=== PATIENT | female | born 1960 | race Caucasian/White ===

== ENCOUNTER 2019-01-03 20:23 | Inpatient (IN) ==
[2019-01-04] MEDS ORDERED: CARBOHYDRATES FOR HYPOGLYCEMIA PO PRN (02:58)
[2019-01-04] MEDS ORDERED: DEXTROSE 50% 50 ML SYRINGE IV PRN (02:58)
[2019-01-04] MEDS ORDERED: GLUCOSE 40% GEL 15 GM TUBE PO PRN (02:58)
[2019-01-04] MEDS ORDERED: GLUCOSE 10 TABS/TUBE PO PRN (02:58)
[2019-01-04] MEDS ORDERED: ONDANSETRON INJ 2 MG/ML 2 ML VIAL IV PRN (02:58)
[2019-01-04] MEDS ORDERED: GLUCAGON FOR INJ 1 MG VIAL SQ PRN (02:58)
--- NOTE | 2019-01-04 06:06 | History & Physical Report ---
Date of Service January 04, 2019 Assessment & Plan (1) Symptomatic anemia: Patient's hemoglobin reportedly initially been 14, and then was found to be 10 at a later interval, and then 8 upon laboratories performed today at [facility]. Repeat laboratories now. NPO Type and screen. Hemoccults. H&H every 6 hours Consult gastroenterology. Present on Admission?: Yes (2) Pulmonary embolism on right: Review of study report from outside facility notes a filling defect in the segmental/subsegmental posterior basilar right lower lobe pulmonary artery consistent with pulmonary embolism. Order lower extremity venous Dopplers bilaterally. Consult pulmonology. Present on Admission?: Yes (3) Hypertension: Hold HCTZ and enalapril. Present on Admission?: Yes (4) Hyperlipidemia: Continue fenofibrate 160 mg daily. Check a fasting lipid panel Present on Admission?: Yes (5) Diabetes mellitus: Hold metformin. Placed on Accu-Cheks before meals and at bedtime with NovoLog coverage per scale Check hemoglobin A1c Present on Admission?: Yes (6) Anxiety: Continue lorazepam. Present on Admission?: Yes (7) Hepatic steatosis: Follow serial LFTs. Present on Admission?: Yes History of Present Illness Chief Complaint: Patient was seen initially at [facility] emergency department earlier in the day due to headache, chest pain and dyspnea on exertion Primary Care Provider: Ashley Muhammad The patient is a 58-year-old female with a past medical history including hypertension, hyperlipidemia, diabetes mellitus and anxiety, who initially presented to the emergency department at [facility] with complaint of headache, chest pain, palpitations and progressively worsening dyspnea on exertion. She was found to have hemoglobin that decreased to 8, and with out having any GI physician production machine operator over the weekend at their facility, she was accepted in transfer to [facility] for further work-up and treatment. The patient reports that she has had rectal bleeding in the past, which was attributed to hemorrhoids, and did have a colonoscopy which was otherwise negative about 8-9 years ago. She has never had an endoscopy performed. She does also describe epigastric and mid abdominal burning sensation that has been persistent for a month or more. She had been seen at an acute care center and was treated for bronchitis with oral antibiotics recently, but without improvement in her symptoms, she presented to the ED as noted above. Allergies Allergy/AdvReac Type Severity Reaction Status Date / Time shrimp Allergy Rash Verified 01/04/19 05:51 Past Med/Surg History Social History Preferred Language: Beninese Communication Ability: Effective Beliefs That Will Affect Care: None Current Living Situation: Family Other Information That Helps Us Care for You: No Feels Safe at Home: Yes Safety Concerns: Feels Safe At This Time Smoking Status: Never smoker Hx Alcohol Use: No Hx Substance Use: No Review of Systems Review of Systems: The patient denies chest pain, cough, lower extremity swe lling, sore throat, fevers, chills, sweats, nausea, vomiting, diarrhea , constipation, pelvic pain, blood in urine or stool, dysuria, urinary frequency or urgency, memory loss, loss of consciousness, rash, abnormal bruising or bleeding, imbalance, focal or generalized weakness, numbness or tingling in arms or legs, generalized arthralgias or myalgias, back or neck pain, or night sweats. The review of systems is otherwise negative other than for that already noted above, and at least 10 systems have been reviewed. Physical Exam Physical Exam: The patient is awake, alert and oriented 3, well developed and well nourished, normocephalic and atraumatic, lying in bed and in no acute distress. HEENT--PERRL, EOMI, mucous membranes and oropharynx dry. Neck--supple. No JVD. No bruits. Thyroid normal, trachea midline, no adenopathy. Heart--normal S1 and S2. No murmurs, rubs or gallops. Lungs--clear bilaterally, no respiratory distress, no accessory muscle use. Abdomen--normal bowel sounds and soft. Nontender. Nondistended, no hernias or masses, no organomegaly. Extremities--no cyanosis or clubbing. No edema. There are good distal pulses b/l. Dermatologic--normal skin turgor, normal color, no abnormal lymph nodes, no rash. Neurologic--cranial nerves II through XII grossly intact. Rheumatologic--normal range of motion. Psychiatric--normal affect. Results & Data Vital Signs (Past 12 Hours) Vital Signs Temp Pulse Resp BP Pulse Ox 01/04/19 02:42 97.5 F L 79 19 164/74 H 96 01/04/19 02:10 98.1 F 84 18 182/84 H 95 Code Status & VTE Plan Code Status Full code VTE Prophylaxis Plan VTE Prophylaxis will be ordered: Yes PG Care Time/CCT Total # of Minutes Spent Total Time Spent with Patient: Total time spent is greater than 50% in coordination of care (as documented) at patient's floor/unit and/or counseling patient:
[2019-01-04 06:37] LABS: Hematocrit (blood only) 27.8 % (37-47); Mean Corpuscular Hemoglobin 19.1 pg (25-34); Mean Corpuscular Hgb Conc 28.8 g/dL (32-36); Mean Corpuscular Volume 66.3 fL (80-100); Mean Platelet Volume 8.9 fL (7.4-10.4); Platelet Count 574 K/uL (130-400); RDW Coefficient of Variation 15.8 % (11.5-14.5); RDW Standard Deviation 38.4 fL (36.4-46.3); Red Blood Count 4.19 M/uL (4.2-5.4); White Blood Count 8.23 K/uL (4.8-10.8)
[2019-01-04 06:41] LABS: Anisocytosis Present; Basophils # (auto) 0.12 K/uL (0-0.2); Basophils % (auto) 1.5 %; Eosinophils # (auto) 0.25 K/uL (0-0.5); Immature Granulocytes # (auto) 0.05 K/uL (0.00-0.02); Immature Granulocytes % (auto) 0.6 %; Lymphocytes # (auto) 1.51 K/uL (1.2-3.4); Lymphocytes % (auto) 18.3 %; Monocytes # (auto) 0.62 K/uL (0.11-0.59); Monocytes % (auto) 7.5 %; Neutrophils # (auto) 5.68 K/uL (1.4-6.5); Neutrophils % (auto) 69.1 %; Ovalocytes 1+; Polychromasia 1+
[2019-01-04 06:50] LABS: Alanine Aminotransferase 37 U/L (12-78); Albumin Level 3.3 gm/dl (3.4-5.0); Aspartate Aminotransferase 34 U/L (15-37); BUN Creatinine Ratio 18.9 (10-20); Blood Urea Nitrogen 18 mg/dl (7-18); Calcium 8.8 mg/dl (8.5-10.1); Carbon Dioxide 28 mmol/L (21-32); Chloride 102 mmol/L (98-107); Est GFR (African American) 77.4; Est GFR (Non-African American) 66.8; Glucose 156 mg/dl (70-99); Sodium 138 mmol/L (136-145)
[2019-01-04 06:55] LABS: Albumin Globulin Ratio 0.9 (0.9-2); Alkaline Phosphatase 66 U/L (45-117); Bilirubin,Total 0.5 mg/dl (0.2-1); Globulin 3.6 gm/dl (2.5-4.0); Total Protein 6.9 gm/dl (6.4-8.2); Troponin I < 0.015 ng/ml (0-0.045)
[2019-01-04] MEDS: INSULIN ASPART 100 UNITS/ML 3 ML PEN SC SCH ×2 (08:07→11:52)
--- NOTE | 2019-01-04 08:37 | Ultrasound Report ---
BILATERAL LOWER EXTREMITY VENOUS DOPPLER HISTORY: Acute pain and swelling of the lower extremities PE COMPARISON STUDY: None. FINDINGS: There is normal compressibility, flow, and augmentation within the bilateral lower extremit y deep venous systems. IMPRESSION: No DVT within the right or left lower extremity. Electronically signed by: Slick Sawant M.D. 01/04/2019 8:35 AM
--- NOTE | 2019-01-04 14:55 | Gastrointestinal Consultation ---
Date of Consultation January 04, 2019 Assessment & Plan (1) Symptomatic anemia: Fe studies pending but microcytic so could be Fe Defiency. Heme neg. rectal bleeding--chronic, rule out colon pathology epi pain--rule out PUD For above recommend EGD and colonoscopy which will plan for tomorrow. Discussed with DR Queen and he states ok even in light of pulm embolus given stability of patient and small size and may even be chronic. Procs and risks explained to patient and nieces which include but not limited to med reaction bleeding, perforation, aspiration, and missed lesions. Check PT/PTT in am. fatty liver--nothing acute to do. LFT this am normal. History of Present Illness Reason for Consultation: anemia Requesting Physician: DR Morales Attending Physician: Octavio Queen DO History of Present Illness CC shortness of breath HPI Two nieces present for H and P. Pt states had colo 8-9 years ago. States has frequent rectal bleeding bright red chronically couple times per week none for couple weeks. Some chronic epi pain post jonathan but new buring epi pain over last month. Shortness of breath on exertion. Alos some chest pain and palpiations and high BP on standing up. Recent abx for possible bronchitis as a patient no help. Per [facility] ER report her Hgb is normally in 13-14 range but on presentation there 01/03 at 1724 8 and this am also 8 with low MCV. AST elevated mildly at [facility] and this am normal. Rectal per ER report heme neg. Pt denies black stools. CXR at [facility] neg but D Dimer high so CTA done showing small PE right lung fatty liver. Doppler for LE DVT done here neg. PMH DM, anxiety FHX noncontributoaory Shx Tob neg Allergies Allergy/AdvReac Type Severity Reaction Status Date / Time shrimp Allergy Rash Verified 01/04/19 05:51 Patient History Social History Preferred Language: Vietnamese Communication Ability: Effective Beliefs That Will Affect Care: None Current Living Situation: Family Other Information That Helps Us Care for You: No Feels Safe at Home: Yes Safety Concerns: Feels Safe At This Time Smoking Status: Never smoker Hx Alcohol Use: No Hx Substance Use: No Review of Systems Review of Systems: All systems reviewed & are unremarkable except as noted in HPI & below Physical Exam Constitutional: WD/WN, vitals as above Eyes: PERRL, conjunctivae normal, anicteric sclerae ENMT: external ear and nose normal, oropharynx normal Neck: normal visual inspection and trachea midline Respiratory: normal respiratory effort, lungs clear to auscultation Cardiovascular: RRR, no murmur, no edema Gastrointestinal (Abdomen): normal bowel sounds, soft, nontender, no hepatosplenomegaly Skin: no rashes, warm and dry Neurologic: PERRL, EOMI, accommodation nl, no face palsy, no dysarthria Psychiatric: A+Ox3, euthymic affect Results & Data Vital Signs (Past 12 Hours) Vital Signs Temp Pulse Resp BP Pulse Ox 01/04/19 11:17 36.5 C 77 18 164/78 H 95 01/04/19 07:51 37.1 C 70 18 152/82 H 98
[2019-01-04] MEDS ORDERED: POLYETHYLENE (MIRALAX) 17 GM PACK PO SCH (15:00)
--- NOTE | 2019-01-04 15:02 | History & Physical Bridge Note ---
Date of Service January 04, 2019 History & Physical Bridge Note I have examined the patient, reviewed the History & Physical and in the interval since the performance of the History & Physical I have noted the following changes of clinical significance: Patient resting in bed, no distress, just wants some ice chips discussed recent events, says she has had progressive shortness of breath, no real chest pain she is constantly eating ice she has not noticed any dark stools she does have a history of hemorrhoids with an intervention and that bleeding had stopped some time ago last full colonoscopy was 10 years ago, never had EGD will repeat H/H this afternoon and get iron, TIBC, ferritin, folate and b12 l hanna discussed with Dr. Dent, plan for EGD and colonoscopy tomorrow/Saturday reviewed the CTA chest report, very small PE noted in right lower lobe, subsegmental branch no filling defects in large arteries negative for DVT bilaterally on venous dopplers here breathing comfortably on room air will hold off on full anticoagulation until anemia work up complete unsure if the PE is even acute as she is asymptomatic, likely the dyspnea is due to anemia, Hb of 8
[2019-01-04 15:25] LABS: Hematocrit (blood only) 27.9 % (37-47); Hemoglobin 8.2 g/dL (12.0-16.0)
[2019-01-04 16:03] LABS: Folate (Folic Acid) 17.18 ng/ml (>5.38)
[2019-01-04] MEDS ORDERED: hydroCHLOROthiazide 25 MG TAB PO STA (16:20)
[2019-01-04] MEDS ORDERED: ENALAPRIL MALEATE 5 MG TAB PO STA (16:20)
[2019-01-04] MEDS ORDERED: LORazepam 0.5 MG TAB PO PRN (16:21)
[2019-01-04] MEDS ORDERED: DiphenhydrAMINE HCL 50 MG/ML VIAL IV STA (16:51)
[2019-01-04] MEDS: POTASSIUM CHLORIDE 10 MEQ TABCR PO SCH (20:35)
[2019-01-05] MEDS: INSULIN ASPART 100 UNITS/ML 3 ML PEN SC SCH (00:22)
[2019-01-05 06:01] LABS: Estimated Average Glucose 197 mg/dl; Hemoglobin A1C 8.5 % (4.5-5.6)
[2019-01-05 06:11] LABS: Partial Thromboplastin Ratio 0.8; Partial Thromboplastin Time 21.9 Seconds (21.0-31.0); Prothrombin Time 10.7 Seconds (9.0-12.0)
[2019-01-05 06:16] LABS: Hematocrit (blood only) 26.8 % (37-47); Hemoglobin 7.7 g/dL (12.0-16.0); Mean Corpuscular Hgb Conc 28.7 g/dL (32-36); Mean Corpuscular Volume 66.2 fL (80-100); Mean Platelet Volume 8.7 fL (7.4-10.4); Platelet Count 465 K/uL (130-400); RDW Coefficient of Variation 15.7 % (11.5-14.5); RDW Standard Deviation 37.8 fL (36.4-46.3); Red Blood Count 4.05 M/uL (4.2-5.4); White Blood Count 5.24 K/uL (4.8-10.8)
[2019-01-05 06:17] LABS: Basophils # (auto) 0.08 K/uL (0-0.2); Basophils % (auto) 1.5 %; Eosinophils # (auto) 0.21 K/uL (0-0.5); Hypochromasia Present; Immature Granulocytes # (auto) 0.02 K/uL (0.00-0.02); Immature Granulocytes % (auto) 0.4 %; Lymphocytes # (auto) 1.01 K/uL (1.2-3.4); Lymphocytes % (auto) 19.3 %; Microcytosis Present; Monocytes # (auto) 0.56 K/uL (0.11-0.59); Monocytes % (auto) 10.7 %; Neutrophils # (auto) 3.36 K/uL (1.4-6.5); Neutrophils % (auto) 64.1 %; Ovalocytes 1+
[2019-01-05 06:30] LABS: Albumin Level 3.3 gm/dl (3.4-5.0); BUN Creatinine Ratio 14.1 (10-20); Bilirubin,Total 0.6 mg/dl (0.2-1); Calcium 8.8 mg/dl (8.5-10.1); Creatinine Clr Calc Pharmacy 92.6 ml/min; Est GFR (African American) 102.1; Est GFR (Non-African American) 88.1; Globulin 3.3 gm/dl (2.5-4.0); Potassium 3.4 mmol/L (3.5-5.1); Total Protein 6.6 gm/dl (6.4-8.2)
[2019-01-05] MEDS ORDERED: POTASSIUM CHLORIDE 20 MEQ TABCR PO STA (09:11)
--- NOTE | 2019-01-05 14:35 | History & Physical Report ---
Date of Service January 05, 2019 History of Present Illness Chief Complaint: anemia Primary Care Provider: Ashley Muhammad For EGD and colonoscopy Allergies Allergy/AdvReac Type Severity Reaction Status Date / Time shrimp Allergy Rash Verified 01/04/19 05:51 Past Med/Surg History Social History Preferred Language: Albanian Communication Ability: Effective Beliefs That Will Affect Care: None Current Living Situation: Family Other Information That Helps Us Care for You: No Feels Safe at Home: Yes Safety Concerns: Feels Safe At This Time Smoking Status: Never smoker Hx Alcohol Use: No Hx Substance Use: No Physical Exam Constitutional: + obese Respiratory: normal respiratory effort Cardiovascular: Rate/Rhythm: regular rate and regular rhythm Gastrointestinal (Abdomen): Percussion/Palpation: abdomen soft Results & Data Vital Signs (Past 12 Hours) Vital Signs Temp Pulse Resp BP Pulse Ox 01/05/19 11:03 36.7 C 80 18 151/81 H 98 01/05/19 06:41 36.9 C 77 18 146/78 H 95 01/05/19 03:21 36.8 C 80 18 128/74 95 Code Status & VTE Plan VTE Prophylaxis Plan VTE Prophylaxis will be ordered: Yes
--- NOTE | 2019-01-05 14:43 | Anesthesiology Consultation ---
Date of Service January 05, 2019 Diabetes type 2 HTN Obesity Pulmonary Embolism Anemia Assessment & Plan (1) Encounter for pre-operative examination: Chart Review Chart Review: Acceptable Risk for Surgery and Patient NOT seen in Pre Admission Testing Consults Requested none ASA ASA2 Proposed Anesthesia Anesthesia Type: MAC Risk / Benefits Reviewed With: PT / POA / Parent / Guardian, Accepts Plan and Informed Consent Obtained History Surgery Operation Date: 01/05/19 10:00 Proposed Procedures p Colonoscopy EGD Dr Annemarie Sharpe Height/Weight Height: 5 ft 6 in Weight: 92.4 kg Allergies Allergy/AdvReac Type Severity Reaction Status Date / Time shrimp Allergy Rash Verified 01/04/19 05:51 Medications Active Medications Generic Name Dose Route Start Last Admin Trade Name Freq PRN Reason Stop Dose Admin Potassium Chloride 10 meq 01/04/19 17:30 01/04/19 20:35 Klor-Con M10 PO 02/03/19 17:29 Not Given DAILY VICKY NPO Date Last Intake of Fluids: 01/04/19 Time Last Intake of Fluids: 23:00 Date Last Intake of Solids: 01/03/19 Time Last Intake of Solids: 12:25 Exercise / Class Metabolic Activity II 4-5 Yardwork/Stairs/Walk up hill Past Anesthesia History No Hx of Anesthesia Complications and No Family Hx of Anesthesia Complications History of PONV No Hx of PONV and No Hx of Motion Sickness Social History Smoking Status: Never smoker Hx Alcohol Use: No Hx Substance Use: No Physical Exam Vital Signs Last Vital Signs Temp 36.6 C 01/05/19 14:22 Pulse 83 01/05/19 14:22 Resp 20 01/05/19 14:22 BP 166/94 H 01/05/19 14:22 Pulse Ox 100 01/05/19 14:22 ENMT Mouth: no dentition abnormality Thyromental Distance: > or= 3.5 Finger Breadths Mallampati Class: II Neck normal visual inspection Respiratory normal respiratory effort Auscultation: lungs clear to auscultation bilaterally Cardiovascular Rate/Rhythm: regular rate and regular rhythm Psychiatric Orientation: alert Testing Laboratory Results 01/05/19 05:34 01/05/19 05:34 PT 10.7 Seconds (9.0-12.0) 01/05/19 05:34 INR 1.0 (0.9-1.1) 01/05/19 05:34 APTT 21.9 Seconds (21.0-31.0) 01/05/19 05:34 Hemoglobin A1c 8.5 % (4.5-5.6) H 01/04/19 05:43 Blood Type O Positive 01/04/19 07:06 Antibody Screen NEGATIVE 01/04/19 07:06 01/05/19 01/05/19 11:18 07:23 POC Glucose 149 H 181 H
[2019-01-05] MEDS ORDERED: SODIUM CHLORIDE 0.9% 1000ML 1,000 ML IV SCH (14:45)
[2019-01-05] MEDS ORDERED: LIDOCAINE HCL 2% 2 ML VIAL/AMP(20MG/ML) INFIL ONE (15:24)
[2019-01-05] MEDS ORDERED: PROPOFOL IV EMULSION 10 MG/ML 20 ML VIAL IV ONE ×2 (15:24)
--- NOTE | 2019-01-05 15:25 | GI REPORT ---
Patient Name: Meg Welsh Procedure Date: 01/05/2019 3:02 PM Date of : 1960 Admit Type: Inpatient Age: 58 Gender: Female Attending MD: Federico Sharpe MD Procedure: Upper GI endoscopy Providers: Federico Sharpe MD Referring MD: Emanuel Shepard Indications: Iron deficiency anemia Medicines: Propofol total dose 260 mg IV, Lidocaine 80 mg IV Complications: No immediate complications. Estimated Blood Loss: Estimated blood loss: none. Procedure: Pre-Anesthesia Assessment: - Prior to the procedure, a History and Physical was performed, and patient medications, allergies and sensitivities were reviewed. The patient's tolerance of previous anesthesia was reviewed. - The risks and benefits of the procedure and the sedation options and risks were discussed with the patient. All questions were answered and informed consent was obtained. After obtaining informed consent, the endoscope was passed under direct vision. Throughout the procedure, the patient's blood pressure, pulse, and oxygen saturations were monitored continuously. The Scope was introduced through the mouth, and advanced to the second part of duodenum. The upper GI endoscopy was accomplished without difficulty. The patient tolerated the procedure well. Findings: The Z-line was regular and was found 35 cm from the incisors. The examined esophagus was normal. A few 4 mm semi-sessile polyps with no bleeding and no stigmata of recent bleeding were found in the gastric body. The examined duodenum was normal. Impression: - Z-line regular, 35 cm from the incisors. - Normal esophagus. - A few gastric polyps. - Normal examined duodenum. - No specimens collected. Recommendation: - Return patient to [facility] for ongoing care. Federico Sharpe M.D. Federico Sharpe MD 01/05/2019 3:24:12 PM This report has been signed electronically. Note Initiated On: 01/05/2019 3:02 PM Number of Addenda: 0 I attest to the content of the Intraoperative Record and orders documented therein, exceptions below {[id number]}
--- NOTE | 2019-01-05 15:27 | GI REPORT ---
Patient Name: Meg Welsh Procedure Date: 01/05/2019 3:01 PM Date of : 1960 Admit Type: Inpatient Age: 58 Gender: Female Attending MD: Federico Sharpe MD Procedure: Colonoscopy Providers: Federico Sharpe MD Referring MD: Emanuel Wilhelm Indications: Rectal bleeding, Iron deficiency anemia Medicines: Propofol total dose 260 mg IV, Lidocaine 80 mg IV Complications: No immediate complications. Estimated Blood Loss: Estimated blood loss: none. Procedure: Pre-Anesthesia Assessment: - Prior to the procedure, a History and Physical was performed, and patient medications, allergies and sensitivities were reviewed. The patient's tolerance of previous anesthesia was reviewed. - The risks and benefits of the procedure and the sedation options and risks were discussed with the patient. All questions were answered and informed consent was obtained. After I obtained informed consent, the scope was passed under direct vision. Throughout the procedure, the patient's blood pressure, pulse, and oxygen saturations were monitored continuously. The scope was introduced through the anus and advanced to the terminal ileum. The colonoscopy was performed without difficulty. The patient tolerated the procedure well. The quality of the bowel preparation was good. Findings: The terminal ileum appeared normal. Non-bleeding internal hemorrhoids were found during endoscopy. The hemorrhoids were mild. Impression: - The examined portion of the ileum was normal. - Non-bleeding internal hemorrhoids. - No specimens collected. Recommendation: - Return patient to [facility] for ongoing care. Federico Sharpe M.D. Federico Sharpe MD 01/05/2019 3:26:17 PM This report has been signed electronically. Note Initiated On: 01/05/2019 3:01 PM Number of Addenda: 0 I attest to the content of the Intraoperative Record and orders documented therein, exceptions below {[id number]}
--- NOTE | 2019-01-05 15:45 | Progress Note ---
DATE: 01/05/2019 REASON FOR EVALUATION: Anemia and rectal bleeding. HISTORY OF PRESENT ILLNESS: The patient is a 58-year-old transferred from [facility] who underwent an EGD and colonoscopy today for anemia with microcytic indices and rectal bleeding. EGD was negative except for some incidental gastric polyps. The exam was carried into the duodenum where numerous villi were encountered indicating negative for celiac disease. Her colonoscopy was carried into the terminal ileum. There was no inflammation, polyps, cancers or bleeding lesions seen. The only lesions found were some mild internal hemorrhoids which were the obvious source for her rectal bleeding. At this point, I would recommend that the patient undergo a Hematology consult and we will arrange for her to have an outpatient video capsule to evaluate her small intestine.
--- NOTE | 2019-01-05 15:55 | Anesthesiology Progress Note ---
Date of Service January 05, 2019 Anesthesia Post Procedure Vital Signs Vital Signs: Temp Pulse Pulse Resp BP Pulse Ox 01/05/19 15:41 75 18 131/79 96 01/05/19 15:26 87 18 113/55 L 94 01/05/19 14:22 36.6 C 83 20 166/94 H 100 01/05/19 11:03 36.7 C 80 18 151/81 H 98 01/05/19 06:41 36.9 C 77 18 146/78 H 95 01/05/19 03:21 36.8 C 80 18 128/74 95 01/04/19 23:06 36.8 C 80 18 156/77 H 99 01/04/19 19:40 36.7 C 85 16 136/78 97 01/04/19 16:00 81 Transfer of Care Handoff Completed per policy Notes Mental Status: alert / awake / arousable Patient Amnestic to Procedure: Yes Nausea / Vomiting: adequately controlled Pain: adequately controlled Airway Patency, RR, SpO2: stable & adequate BP & HR: stable & adequate Hydration State: stable & adequate Anesthetic Complications: no major complications apparent
[2019-01-05] MEDS: POTASSIUM CHLORIDE 10 MEQ TABCR PO SCH (17:40)
--- NOTE | 2019-01-05 19:27 | Hospitalist Progress Note ---
Date of Service January 05, 2019 Assessment & Plan (1) Iron deficiency anemia: severe. s/p EGD/colonoscopy today. no source (mild hemorrhoids found but doubt this was cause). agree with outpatient capsule endoscopy. start iron supplementation. may need IV venofer. b12 level is low-normal -- supplement. cbc in am for stability. (2) Symptomatic anemia: 2nd to severe Fe deficiency. as above. would Tx if Hb <7.5. (3) Pulmonary embolism on right: Review of study report from outside facility notes a filling defect in the segmental/subsegmental posterior basilar right lower lobe pulmonary artery consi stent with pulmonary embolism. Dopplers neg for DVT. this would be unprovoked event. since endoscopes are negative and no obvious GI blood loss at this time consider starting anticoagulation tomorrow - eliquis? unprovoked nature of the PEs is concerning for occult malignancy. doubt inherited thrombophilia. (4) Hypertension: Cont enalapril. Adjust as needed. (5) Hyperlipidemia: resume fibrate therapy at d/c. (6) Diabetes mellitus: Holding metformin. a1c 8.5%. would titrate metformin at d/c. consider adding januvia as well. (7) Anxiety: Continue lorazepam. mod-severe symptoms right now. (8) Hepatic steatosis: LFTs stable. Subjective patient very anxious. asks about her recent dyspnea on exertion. multiple questions about the anemia. thinks rectal bleeding was due to hemorrhoids. hasn't had BRBPR in some time, however. mentions she went to [facility] because "my blood pressure went up high when I stood up." no recent travel. no recent surgery. mother had VTE in context of breast cancer years ago. Review of Systems Constitutional: no fever and no weight loss Respiratory: + dyspnea on exertion; no cough and no dyspnea Cardiovascular: no chest pain Gastrointestinal: no abdominal pain, no nausea and no vomiting Physical Exam Constitutional: well developed and well nourished; no acute distress ENMT: external ear and nose normal, oropharynx normal Respiratory: normal respiratory effort, lungs clear to auscultation Cardiovascular: RRR, no murmur, no edema Heart Sounds: normal S1 and normal S2 Vessels: posterior tibial pulses present and dorsalis pedis pulses present; no JVD Extremities: + edema Gastrointestinal (Abdomen): normal bowel sounds, soft, nontender, no hepatosplenomegaly Skin: + pallor Psychiatric: Orientation: alert and oriented x 3 Affect: + anxious affect Results & Data Vital Signs (Past 12 Hours) Vital Signs Temp Pulse Resp BP Pulse Ox 01/05/19 18:48 36.7 C 87 20 148/78 H 97 01/05/19 15:56 70 18 137/92 98 01/05/19 15:41 75 18 131/79 96 01/05/19 15:26 87 18 113/55 L 94 01/05/19 14:22 36.6 C 83 20 166/94 H 100 01/05/19 11:03 36.7 C 80 18 151/81 H 98 Laboratory Results Laboratory Results - last 24 hr 01/04/19 01/05/19 01/05/19 05:43 05:34 05:34 WBC 5.24 RBC 4.05 L Hgb 7.7 L Hct 26.8 L MCV 66.2 L MCH 19.0 L MCHC 28.7 L RDW Std Deviation 37.8 RDW Coeff of Belen 15.7 H Plt Count 465 H MPV 8.7 Immature Gran % (Auto) 0.4 Neut % (Auto) 64.1 Lymph % (Auto) 19.3 [place] % (Auto) 10.7 Eos % (Auto) 4.0 Baso % (Auto) 1.5 Immature Gran # (Auto) 0.02 Neut # (Auto) 3.36 Lymph # (Auto) 1.01 L King[place] # (Auto) 0.56 Eos # (Auto) 0.21 Baso # (Auto) 0.08 Hypochromasia Present Microcytosis Present Ovalocytes 1+ PT 10.7 INR 1.0 APTT 21.9 PTT Ratio 0.8 Sodium Potassium Chloride Carbon Dioxide Anion Gap BUN Creatinine Est Cr Clr Drug Dosing Est GFR ( Amer) Est GFR (Non-Af Amer) BUN/Creatinine Ratio Glucose POC Glucose Estimat Average Glucose 197 Hemoglobin A1c 8.5 H Calcium Iron Total Bilirubin AST ALT Alkaline Phosphatase Total Protein Albumin Globulin Albumin/Globulin Ratio 01/05/19 01/05/19 01/05/19 05:34 07:23 11:18 WBC RBC Hgb Hct MCV MCH MCHC RDW Std Deviation RDW Coeff of Belen Plt Count MPV Immature Gran % (Auto) Neut % (Auto) Lymph % (Auto) King[place] % (Auto) Eos % (Auto) Baso % (Auto) Immature Gran # (Auto) Neut # (Auto) Lymph # (Auto) King[place] # (Auto) Eos # (Auto) Baso # (Auto) Hypochromasia Microcytosis Ovalocytes PT INR APTT PTT Ratio Sodium 139 Potassium 3.4 L Chloride 103 Carbon Dioxide 28 Anion Gap 8.0 BUN 10 D Creatinine 0.74 Est Cr Clr Drug Dosing 92.6 Est GFR ( Amer) 102.1 Est GFR (Non-Af Amer) 88.1 BUN/Creatinine Ratio 14.1 Glucose 148 H POC Glucose 181 H 149 H Estimat Average Glucose Hemoglobin A1c Calcium 8.8 Iron Total Bilirubin 0.6 AST 33 ALT 34 Alkaline Phosphatase 73 Total Protein 6.6 Albumin 3.3 L Globulin 3.3 Albumin/Globulin Ratio 1.0 01/05/19 01/05/19 01/05/19 16:13 16:38 20:26 WBC RBC Hgb Hct MCV MCH MCHC RDW Std Deviation RDW Coeff of Belen Plt Count MPV Immature Gran % (Auto) Neut % (Auto) Lymph % (Auto) King[place] % (Auto) Eos % (Auto) Baso % (Auto) Immature Gran # (Auto) Neut # (Auto) Lymph # (Auto) King[place] # (Auto) Eos # (Auto) Baso # (Auto) Hypochromasia Microcytosis Ovalocytes PT INR APTT PTT Ratio Sodium Potassium Chloride Carbon Dioxide Anion Gap BUN Creatinine Est Cr Clr Drug Dosing Est GFR ( Amer) Est GFR (Non-Af Amer) BUN/Creatinine Ratio Glucose POC Glucose 117 H 151 H Estimat Average Glucose Hemoglobin A1c Calcium Iron 14 L Total Bilirubin AST ALT Alkaline Phosphatase Total Protein Albumin Globulin Albumin/Globulin Ratio PG Care Time/CCT Total # of Minutes Spent Total Time Spent with Patient: Total time spent is greater than 50% in coordination of care (as documented) at patient's floor/unit and/or counseling patient: (1) Hypertension Hypertension type: essential hypertension Qualified Code(s): I10 - Essential (primary) hypertension (2) Hyperlipidemia Hyperlipidemia type: mixed hyperlipidemia Qualified Code(s): E78.2 - Mixed hyperlipidemia (3) Diabetes mellitus Diabetes mellitus type: type 2 Diabetes mellitus ferry terminal supervisor insulin use: without ferry terminal supervisor use Diabetes mellitus complication status: without complication Qualified Code(s): E11.9 - Type 2 diabetes mellitus without complications (4) Iron deficiency anemia Iron deficiency anemia type: unspecified iron deficiency Qualified Code(s): D50.9 - Iron deficiency anemia, unspecified
[2019-01-05] MEDS: ENALAPRIL MALEATE 5 MG TAB PO SCH (21:24)
[2019-01-06 06:24] LABS: Hematocrit (blood only) 29.6 % (37-47); Hemoglobin 8.4 g/dL (12.0-16.0); Mean Corpuscular Hemoglobin 18.8 pg (25-34); Mean Corpuscular Hgb Conc 28.4 g/dL (32-36); Mean Corpuscular Volume 66.2 fL (80-100); Mean Platelet Volume 8.8 fL (7.4-10.4); Platelet Count 563 K/uL (130-400); RDW Coefficient of Variation 15.8 % (11.5-14.5); RDW Standard Deviation 38.1 fL (36.4-46.3); Red Blood Count 4.47 M/uL (4.2-5.4); White Blood Count 6.09 K/uL (4.8-10.8)
[2019-01-06 06:46] LABS: Anisocytosis Present; Basophils # (auto) 0.11 K/uL (0-0.2); Basophils % (auto) 1.8 %; Eosinophils # (auto) 0.22 K/uL (0-0.5); Eosinophils % (auto) 3.6 %; Hypochromasia Present; Immature Granulocytes # (auto) 0.02 K/uL (0.00-0.02); Immature Granulocytes % (auto) 0.3 %; Lymphocytes # (auto) 1.21 K/uL (1.2-3.4); Lymphocytes % (auto) 19.9 %; Microcytosis Present; Monocytes # (auto) 0.49 K/uL (0.11-0.59); Neutrophils # (auto) 4.04 K/uL (1.4-6.5); Neutrophils % (auto) 66.4 %; Ovalocytes 1+; Polychromasia 1+
[2019-01-06 06:56] LABS: Albumin Level 3.6 gm/dl (3.4-5.0); BUN Creatinine Ratio 16.4 (10-20); Calcium 8.8 mg/dl (8.5-10.1); Creatinine Clr Calc Pharmacy 76.6 ml/min; Est GFR (African American) 81.6; Est GFR (Non-African American) 70.4; Magnesium 2.6 mg/dl (1.8-2.4); Potassium 3.3 mmol/L (3.5-5.1)
[2019-01-06 06:59] LABS: Albumin Globulin Ratio 0.9 (0.9-2); Bilirubin,Total 0.8 mg/dl (0.2-1); Globulin 3.8 gm/dl (2.5-4.0); Total Protein 7.4 gm/dl (6.4-8.2)
[2019-01-06] MEDS: FERROUS SULFATE 325 MG TAB PO SCH ×2 (08:24→13:07)
--- NOTE | 2019-01-06 08:27 | Anesthesiology Progress Note ---
Date of Service January 06, 2019 Anesthesia Post Procedure Vital Signs Vital Signs: Temp Pulse Pulse Resp BP Pulse Ox 01/06/19 07:15 81 01/06/19 07:00 36.7 C 79 16 126/72 96 01/06/19 03:24 36.7 C 83 18 127/75 96 01/05/19 23:55 36.7 C 83 18 144/76 H 98 01/05/19 18:48 36.7 C 87 20 148/78 H 97 01/05/19 16:30 36.7 C 85 74 16 163/80 H 99 01/05/19 15:56 70 18 137/92 98 01/05/19 15:41 75 18 131/79 96 01/05/19 15:26 87 18 113/55 L 94 01/05/19 14:22 36.6 C 83 20 166/94 H 100 01/05/19 11:03 36.7 C 80 18 151/81 H 98 Notes Mental Status: alert / awake / arousable and participated in evaluation Patient Amnestic to Procedure: Yes Nausea / Vomiting: adequately controlled Pain: adequately controlled Airway Patency, RR, SpO2: stable & adequate BP & HR: stable & adequate Hydration State: stable & adequate Anesthetic Complications: no major complications apparent and Pt Satisfied with anesthetic care
[2019-01-06] MEDS ORDERED: IRON SUCROSE 300 MG in SODIUM CHLORIDE 0.9% 250 ML IV SCH (09:00)
[2019-01-06] MEDS: CYANOCOBALAMIN 500 MCG TABLET (VITAMIN B-12) PO SCH (09:02)
[2019-01-06] MEDS ORDERED: POTASSIUM CHLORIDE 20 MEQ TABCR PO ONE (10:00)
[2019-01-06] MEDS: POTASSIUM CHLORIDE 10 MEQ TABCR PO SCH (10:14)
--- NOTE | 2019-01-06 11:57 | Consultation Report ---
DATE OF CONSULTATION: 01/06/2019 REASON FOR CONSULTATION: Management of iron deficiency anemia and possible gastrointestinal bleeding. HISTORY OF PRESENT ILLNESS: Meg is a very pleasant 58-year-old female patient who initially presented to [facility], was subsequently transferred to [facility] with dyspnea on exertion and profound anemia. Apparently, the patient had an issue with her blood pressure rising precipitously and was becoming progressively short of breath, prompting her presentation to the hospital. Upon admission, she was found to suffer from a profound microcytic hypochromic anemia. Iron studies done at [facility] have confirmed iron deficiency. The patient lives in [place] and clearly admits to not keeping up with her medical care. Upon presentation to [facility], was diagnosed with a right-sided pulmonary embolism. Follow up Dopplers are negative for DVT. Appropriately, Gastroenterology has been consulted. Colonoscopy done yesterday revealed nonbleeding internal hemorrhoids and no active bleeding otherwise. EGD was pretty much the same with no evidence of occult bleeding or pathology. Examination of her peripheral blood counts clearly demonstrates overt iron deficiency as manifested by decreased serum iron and elevated platelet count, which is commonly seen. The patient otherwise feels well, offers no complaints of pain, fever or chills. PAST MEDICAL HISTORY: Includes type 2 diabetes mellitus, hyperlipidemia, hypertension, anxiety/depression, hepatic steatosis, now iron deficiency. MEDICATIONS: Metformin. ALLERGIES: INCLUDE SHRIMP. SOCIAL HISTORY: The patient lives with her sister. She is . She is a nonsmoker, nondrinker, non-illicit drug user. FAMILY HISTORY: Mother actually of metastatic breast cancer in her 60s. REVIEW OF SYSTEMS: As per HPI, most notably for dyspnea on exertion, shortness of breath. GENERAL: Negative for fevers, chills or sweats. She is not anorexic or losing weight. SKIN: No rashes or lesions. No history of dermatoses. HEENT: She denies headaches. Positive for occasional lightheadedness. No overt vertigo, no visual or hearing deficits. No sinus symptoms, sore throat or dysphagia. LYMPH: No history of lymphoproliferative disease. CARDIAC: No history of coronary artery disease, no angina or palpitations. PULMONARY: Negative for COPD. She described shortness of breath, dyspnea on exertion. Denies hemoptysis. No cough reported otherwise. GASTROINTESTINAL: Negative for abdominal pain, nausea, vomiting, diarrhea or constipation. Positive for occasional bright red rectal bleeding. GENITOURINARY: No hematuria, dysuria, urinary incontinence. PSYCHIATRIC: Positive for anxiety by history. ENDOCRINE: Positive for type 2 diabetes mellitus by history. No history of thyroid disease. MUSCULOSKELETAL: No overt muscle weakness. No arthralgias or myalgias otherwise. NEUROLOGIC: Negative for seizure, stroke, or migraine headache. HEMATOLOGIC: Positive for microcytic anemia. PHYSICAL EXAMINATION: GENERAL: A very pleasant, well-nourished 58-year-old female, in no acute distress. VITAL SIGNS: Temperature 36.7, pulse 81, respiratory rate 16, blood pressure 126/72. SKIN: Warm, dry, noncyanotic without petechia, rash or ecchymosis. HEENT: Head is atraumatic, normocephalic. Eyes: PERRLA, EOMI. Sclerae nonicteric. No conjunctival injection. Nares patent without rhinorrhea or discharge. Throat is clear. Tongue is midline. No buccal lesions or ulcerations. NECK: Supple. No evidence of thyromegaly. Trachea is midline. LYMPHATICS: No cervical or supraclavicular palpable nodes. HEART: Regular rate and rhythm. No clicks, rubs or murmurs or gallops. LUNGS: Clear to auscultation bilaterally. ABDOMEN: Soft, nontender, nondistended, without palpable hepatosplenomegaly. EXTREMITIES: No clubbing, cyanosis or edema. MUSCULOSKELETAL: Strength and pulses are equal in all 4 quadrants. NEUROLOGICALLY: She is awake, alert and oriented x3. Cranial nerves are grossly intact. LABORATORY DATA: WBC count 6090, hemoglobin 8.4, platelet count 563,000. Sodium 138, potassium 3.3, chloride 102, carbon dioxide 24, BUN 15, creatinine 0.89. Serum iron 14, glucose 190. RADIOGRAPHIC DATA: Doppler examination, negative DVT study. IMPRESSION: 1. Unprovoked pulmonary embolism. 2. Microcytic anemia. 3. Chronic gastrointestinal bleeding. 4. Type 2 diabetes mellitus. 5. Iron deficiency. 6. Reactive thrombocytosis. 7. Mild hypokalemia. PLAN: It is my pleasure to visit with Meg at bedside. Clearly, this is a very pleasant 58-year-old lady who has not kept up with her age appropriate cancer screening. The patient has never had a mammogram performed. This was her initial colonoscopy and EGD which were fortunately negative. Agree with the hospitalist she will need camera endoscopy to rule out a small bowel occult neoplasia and/or hemorrhage. In regards to her microcytic anemia, I would proceed with IV supplementation. With ongoing bleeding, I suspect oral therapy would not be sufficient to keep up with ongoing losses. In regards to her pulmonary embolism, even though there is risk of bleeding, would initiate unfractionated heparin without bolus and then transition her to Coumadin until the bleeding issues are sorted out. Because of her risk of bleeding, would monitor H and H's every 6 hours or so and if necessary transfuse. I advised Meg that she should follow up with hematology as outpatient; however, transportation is somewhat of an issue. If she cannot be transported, would include in her discharge summary instructions on proceeding with further IV supplementation, iron sucrose 300 mg weekly x2 more doses, should replete her iron stores; however, with ongoing bleeding, she will require supplementation in the future. I would be more than happy to see her as an outpatient if she is able to arrange for transportation. Thank you very much for allowing me to participate in her care. If you have any questions or concerns, feel free to contact me at any time. JAYNE
--- NOTE | 2019-01-06 12:26 | Medical Student H&P ---
Date of Service January 06, 2019 History of Present Illness Chief Complaint: Low iron Primary Care Provider: Ashley Salas Jb Weaver is a 58-year-old female with a history of DMII, hypertension, hyperlipidemia and anxiety who presented to the emergency department at [facility] on Saturday night with concerns of chest pain, dyspnea on exertion, and headache. Her troponin was <0.02 ng/mL; however, she was found to have a hemoglobin of 8 g/dL and a D-dimer of 1.7 mg/L. A chest CT was performed and she was found to have a pulmonary embolism in her right lower lobe. She was at this time transported to [facility] where she underwent venous doppler US to rule out the possibility of a DVT. Bloodwork was repeated showing a hemoglobin of 7.0 ng/dL and MCV of 66.3 fL, indicative of a microcytic anemia. It was noted that at some time the patients hemoglobin had dropped from 14 to 10 but it is unknown when this happened. Patient reports that she has bloodwork done every 6 months. Patient reports that she has had rectal prolapse since the of her son, 39 years ago. She began having symptomatic hemorrhoids 8-9 years ago. At which time she obtained a colonoscopy that showed no evidence of polyps or malignancy. The bleeding has continued intermittently since that time. She reports that she has bright red bleeding every few months and that this bleeding has not changed recently. She states that she only has bleeding with formed stools and the blood is not on the feces itself but rather in the water and on the toilet paper after she relieves herself. She does not endorse any pain or itching with these bloody bowel movements. She will sometimes treat the hemorrhoids with preparation H which helps some. She was also prescribed a cream for the hemorrhoids which she only uses when there is a lot of bleeding which stops it. She normally defecates 2-3 times in the morning and once in the evening. She says her stools are usually loose from her metformin. She does not endorse any changes in her bowel habits or the hemorrhoids over time. Her diet consists mainly of fish, chicken, rice, and potatoes and she eats these foods for breakfast, lunch, and dinner. She does not take a fiber supplement. She was previously diagnosed as anemic in 2005. At that time, she had intense menstrual bleeding. She does not believe there was a particular diagnosis made but knows that she has something that wasnt cancer on her ovary. She underwent a total hysterectomy at this time to relieve the bleeding. Prior to that time her flow was moderate, her cycle lasted 30 days and her menses lasted 7 days. An EGD and colonoscopy were performed yesterday which revealed mild hemorrhoids but no polyps. A pill cam will be performed to further assess the small bowel. She was seen by Dr. Childress in heme/onc this morning who would like to begin her on 3 rounds of IV iron to correct the anemia. He is concerned about the PE and would like to slowly start her on heparin. Her diabetes is managed at home with 500 mg metformin BID. This has been discontinued in the hospital and insulin gave her a rash. She states today that she is feeling better after eating after her procedure yesterday and does endorse any pain, fatigue, headache, palpitations but states that she is anxious and upset about her hospitalization. Allergies Allergy/AdvReac Type Severity Reaction Status Date / Time shrimp Allergy Rash Verified 01/04/19 05:51 Past Med/Surg History Social History Preferred Language: Italian Communication Ability: Effective Beliefs That Will Affect Care: None Current Living Situation: Family Other Information That Helps Us Care for You: No Feels Safe at Home: Yes Safety Concerns: Feels Safe At This Time Smoking Status: Never smoker Hx Alcohol Use: No Hx Substance Use: No Review of Systems no fever, no chills, no sweats and no weight loss no cough and no dyspnea no dyspnea, no orthopnea and no palpitations as per Subjective / HPI + anxiety Physical Exam Physical Exam: Appearance: Patient was in no acute distress but appeared pale and tearful throughout interview. Vital Signs: BP: 126/72 HR: 81 RR: 16 Temp: 36.7 C Pulse Ox: 96 Height: 5 6 Weight: 201 lb. Physical Exam: Neck: Swelling in the superficial cervical region. Pulmonary Clear bilaterally. No crackles, rales, or wheezes. Cardiac with pulses Regular rate and rhythm. No rubs murmurs or gallops. No edema. Abdomen Not examined. Rectal, Pelvic and Genitals Not examined. Lymph No lymphadenopathy. Neuro Alert and oriented x 3. Thought pattern is clear and organized. Results & Data Vital Signs (Past 12 Hours) Vital Signs Temp Pulse Pulse Resp BP Pulse Ox 01/06/19 10:50 36.7 C 82 16 143/81 H 97 01/06/19 07:15 81 01/06/19 07:00 36.7 C 79 16 126/72 96 01/06/19 03:24 36.7 C 83 18 127/75 96 Laboratory Results K = 3.3 Anion Gap = 12 Creatinine = .89 Glucose = 190 -> 182 Magnesium 2.6 H-H = 8.4 and 29.6 PLT = 563 MCV = 66.2 Code Status & VTE Plan VTE Prophylaxis Plan VTE Prophylaxis will be ordered: Yes
[2019-01-06] MEDS ORDERED: Heparin IV Standard *NO* Bolus IV ONE (13:47)
[2019-01-06 16:46] LABS: Prothrombin Time 10.4 Seconds (9.0-12.0)
[2019-01-06 16:47] LABS: Partial Thromboplastin Ratio 0.9; Partial Thromboplastin Time 24.3 Seconds (21.0-31.0)
[2019-01-06] MEDS: HEPARIN SODIUM/DEXTROSE 25,000 UNITS/500 ML BAG IV SCH (17:28)
[2019-01-06] MEDS: WARFARIN SOD 5 MG TAB PO SCH (17:57)
[2019-01-06] MEDS: ENALAPRIL MALEATE 5 MG TAB PO SCH (20:23)
--- NOTE | 2019-01-06 21:43 | Hospitalist Progress Note ---
Date of Service January 06, 2019 Assessment & Plan (1) Iron deficiency anemia: severe. s/p EGD/colonoscopy without source (mild hemorrhoids found but doubt this was cause). outpatient capsule endoscopy recommended. b12 level is low-normal -- also supplement. H/H stable today. appreciate heme/onc consult -- s/p venofer today, and will need at least 2 more doses as outpatient. repeat CBC am. (2) Symptomatic anemia: 2nd to severe Fe deficiency. as above. would Tx if Hb <7.5. H/H stable today, however. (3) Pulmonary embolism on right: Review of CT report from outside facility noted a filling defect in the segmental/subsegmental posterior basilar right lower lobe pulmonary artery consistent with pulmonary embolism. Dopplers neg for DVT. this would be unprovoked event. no recent travel, surgery, etc. unprovoked nature of the PEs is concerning for occult malignancy. doubt inherited thrombophilia. in light of concern for GI bleeding will place on heparin drip with coumadin and observe for at least 24 hours to ensure no GI bleeding on such. Dr Childress recommending this approach. will need at least 6 months of Rx. (4) Hypertension: Cont enalapril. Controlled. (5) Hyperlipidemia: resume fibrate therapy at d/c. (6) Diabetes mellitus: Holding metformin. a1c 8.5%. would titrate metformin at d/c. consider adding januvia as well. ?reaction to novolog last pm? this would be unusual -- apparently had transient rash on face/neck only? observe. (7) Anxiety: Continue lorazepam prn. Consider SSRI. (8) Hepatic steatosis: LFTs stable. (9) Hypokalemia: replace, repeat BMP am (10) DVT prophylaxis: heparin drip w/ coumadin Subjective patient quite emotional during the visit again. 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 she is anxious to go home. denies any BRBPR or melena. denies abd pain. eating fine. no dyspnea. Review of Systems Constitutional: no fever and no chills Respiratory: no cough and no dyspnea Cardiovascular: no chest pain Gastrointestinal: no abdominal pain, no nausea and no vomiting Physical Exam Constitutional: well developed and well nourished; no acute distress ENMT: external ear and nose normal, oropharynx normal Respiratory: normal respiratory effort, lungs clear to auscultation Cardiovascular: RRR, no murmur, no edema Heart Sounds: normal S1 and normal S2 Vessels: posterior tibial pulses present and dorsalis pedis pulses present; no JVD Gastrointestinal (Abdomen): normal bowel sounds, soft, nontender, no hepatosplenomegaly Skin: + pallor Psychiatric: Orientation: alert and oriented x 3 Affect: + anxious affect Results & Data Vital Signs (Past 12 Hours) Vital Signs Temp Pulse Pulse Resp BP BP Pulse Ox 01/06/19 20:33 36.8 C 86 19 126/74 95 01/06/19 19:12 85 01/06/19 15:11 36.9 C 82 18 132/76 97 01/06/19 10:50 36.7 C 82 16 143/81 H 97 Laboratory Results Laboratory Results - last 24 hr 01/06/19 01/06/19 01/06/19 05:42 05:42 07:18 WBC 6.09 RBC 4.47 Hgb 8.4 L Hct 29.6 L MCV 66.2 L MCH 18.8 L MCHC 28.4 L RDW Std Deviation 38.1 RDW Coeff of [place] 15.8 H Plt Count 563 H MPV 8.8 Immature Gran % (Auto) 0.3 Neut % (Auto) 66.4 Lymph % (Auto) 19.9 [place] % (Auto) 8.0 Eos % (Auto) 3.6 Baso % (Auto) 1.8 Immature Gran # (Auto) 0.02 Neut # (Auto) 4.04 Lymph # (Auto) 1.21 [place] # (Auto) 0.49 Eos # (Auto) 0.22 Baso # (Auto) 0.11 Polychromasia 1+ Hypochromasia Present Anisocytosis Present Microcytosis Present Ovalocytes 1+ PT INR APTT PTT Ratio Sodium 138 Potassium 3.3 L Chloride 102 Carbon Dioxide 24 Anion Gap 12.0 H BUN 15 Creatinine 0.89 Est Cr Clr Drug Dosing 76.6 Est GFR ( Amer) 81.6 Est GFR (Non-Af Amer) 70.4 BUN/Creatinine Ratio 16.4 Glucose 190 H POC Glucose 182 H Calcium 8.8 Magnesium 2.6 H Total Bilirubin 0.8 AST 41 H ALT 40 Alkaline Phosphatase 82 Total Protein 7.4 Albumin 3.6 Globulin 3.8 Albumin/Globulin Ratio 0.9 01/06/19 01/06/19 01/06/19 11:36 16:22 16:22 WBC RBC Hgb Hct MCV MCH MCHC RDW Std Deviation RDW Coeff of [place] Plt Count MPV Immature Gran % (Auto) Neut % (Auto) Lymph % (Auto) [place] % (Auto) Eos % (Auto) Baso % (Auto) Immature Gran # (Auto) Neut # (Auto) Lymph # (Auto) [place] # (Auto) Eos # (Auto) Baso # (Auto) Polychromasia Hypochromasia Anisocytosis Microcytosis Ovalocytes PT 10.4 INR 1.0 APTT 24.3 PTT Ratio 0.9 Sodium Potassium Chloride Carbon Dioxide Anion Gap BUN Creatinine Est Cr Clr Drug Dosing Est GFR ( Amer) Est GFR (Non-Af Amer) BUN/Creatinine Ratio Glucose POC Glucose 153 H Calcium Magnesium Total Bilirubin AST ALT Alkaline Phosphatase Total Protein Albumin Globulin Albumin/Globulin Ratio 01/06/19 01/06/19 16:31 20:17 WBC RBC Hgb Hct MCV MCH MCHC RDW Std Deviation RDW Coeff of [place] Plt Count MPV Immature Gran % (Auto) Neut % (Auto) Lymph % (Auto) [place] % (Auto) Eos % (Auto) Baso % (Auto) Immature Gran # (Auto) Neut # (Auto) Lymph # (Auto) [place] # (Auto) Eos # (Auto) Baso # (Auto) Polychromasia Hypochromasia Anisocytosis Microcytosis Ovalocytes PT INR APTT PTT Ratio Sodium Potassium Chloride Carbon Dioxide Anion Gap BUN Creatinine Est Cr Clr Drug Dosing Est GFR ( Amer) Est GFR (Non-Af Amer) BUN/Creatinine Ratio Glucose POC Glucose 136 H 185 H Calcium Magnesium Total Bilirubin AST ALT Alkaline Phosphatase Total Protein Albumin Globulin Albumin/Globulin Ratio PG Care Time/CCT Total # of Minutes Spent Total Time Spent with Patient: Total time spent is greater than 50% in coordination of care (as documented) at patient's floor/unit and/or counseling patient: (1) Diabetes mellitus Diabetes mellitus complication status: without complication Diabetes mellitus terminal makeup operator insulin use: without terminal makeup operator use Diabetes mellitus type: type 2 Qualified Code(s): E11.9 - Type 2 diabetes mellitus without complications (2) Hyperlipidemia Hyperlipidemia type: mixed hyperlipidemia Qualified Code(s): E78.2 - Mixed hyperlipidemia (3) Iron deficiency anemia Iron deficiency anemia type: unspecified iron deficiency Qualified Code(s): D50.9 - Iron deficiency anemia, unspecified (4) Hypertension Hypertension type: essential hypertension Qualified Code(s): I10 - Essential (primary) hypertension
[2019-01-06 23:54] LABS: Partial Thromboplastin Ratio 1.4; Partial Thromboplastin Time 37.6 Seconds (21.0-31.0)
[2019-01-07] MEDS ORDERED: HEPARIN IV BOLUS 6,000 UNITS in SYRINGE 0 ML IV ONE (00:15)
[2019-01-07 05:48] LABS: Hematocrit (blood only) 26.4 % (37-47); Hemoglobin 7.6 g/dL (12.0-16.0); Mean Corpuscular Hgb Conc 28.8 g/dL (32-36); Mean Corpuscular Volume 66.2 fL (80-100); Mean Platelet Volume 8.9 fL (7.4-10.4); Platelet Count 530 K/uL (130-400); RDW Coefficient of Variation 15.9 % (11.5-14.5); RDW Standard Deviation 38.3 fL (36.4-46.3); Red Blood Count 3.99 M/uL (4.2-5.4); White Blood Count 6.47 K/uL (4.8-10.8)
[2019-01-07 06:09] LABS: Basophils # (auto) 0.08 K/uL (0-0.2); Basophils % (auto) 1.2 %; Eosinophils # (auto) 0.23 K/uL (0-0.5); Eosinophils % (auto) 3.6 %; Hypochromasia Present; INR 1.1 (0.9-1.1); Immature Granulocytes # (auto) 0.08 K/uL (0.00-0.02); Immature Granulocytes % (auto) 1.2 %; Lymphocytes # (auto) 1.35 K/uL (1.2-3.4); Lymphocytes % (auto) 20.9 %; Monocytes # (auto) 0.49 K/uL (0.11-0.59); Monocytes % (auto) 7.6 %; Neutrophils # (auto) 4.24 K/uL (1.4-6.5); Neutrophils % (auto) 65.5 %; Ovalocytes 1+; Partial Thromboplastin Ratio 2.9; Prothrombin Time 11.1 Seconds (9.0-12.0)
[2019-01-07 06:12] LABS: Partial Thromboplastin Time 79.4 Seconds (21.0-31.0)
[2019-01-07] MEDS: POTASSIUM CHLORIDE 10 MEQ TABCR PO SCH (07:44)
[2019-01-07] MEDS: CYANOCOBALAMIN 500 MCG TABLET (VITAMIN B-12) PO SCH (07:44)
[2019-01-07] MEDS: FERROUS SULFATE 325 MG TAB PO SCH ×2 (07:44→16:14)
[2019-01-07] MEDS ORDERED: POTASSIUM CHLORIDE 20 MEQ TABCR PO ONE (08:00)
--- NOTE | 2019-01-07 09:13 | Progress Note ---
DATE: 01/07/2019 HEMATOLOGY PROGRESS NOTE DIAGNOSES: 1. Microcytic hypochromic anemia. 2. Unprovoked pulmonary embolism. 3. Suspected chronic gastrointestinal bleeding. 4. Type 2 diabetes mellitus. 5. Reactive thrombocytosis. SUBJECTIVE: Meg was seen and examined at bedside. I was happy to see heparin was started and she seems to be doing reasonably well in that regard. She has had a couple of bowel movements absent of blood. Her hemoglobin has remained stable. She was started on oral Coumadin. I presume GI will follow her up upon discharge. My only concern moving forward with Meg is her lack of transportation. I think she has enough issues that need to be followed up, specifically by hem/onc and patient has been resistant to the notion of following up with [facility]. Perhaps we can find the appropriate specialist closer to home in [place]. Meg offers no particular complaints this morning. She received her dose of iron sucrose. However, one dose is inadequate and again would need a couple of followup doses intravenously if possible to arrange. Nursing reports no overnight difficulties otherwise. OBJECTIVE: GENERAL: A very pleasant 58-year-old female patient in no acute distress. VITAL SIGNS: Temperature 36.7, pulse 80, respiratory rate 16, blood pressure 107/65. SKIN: Without rash or lesion. HEENT: Oral mucosa without erythema or ulceration. NECK: Supple. HEART: Regular rate and rhythm. No clicks, rubs or murmurs. LUNGS: Clear to auscultation bilaterally. ABDOMEN: Soft, nontender, nondistended. EXTREMITIES: No clubbing, cyanosis or edema. NEUROLOGIC: She is grossly intact. LABORATORY DATA: WBC count 6470, hemoglobin 7.6, platelet count 530,000. Potassium 3.2. Her PTT is 79.4 seconds. Chemistries not ordered today. IMPRESSION: 1. Unprovoked pulmonary embolism. 2. Gastrointestinal bleeding. 3. Microcytic hypochromic anemia consistent with iron deficiency. 4. Reactive thrombocytosis. 5. Type 2 diabetes mellitus. PLAN: Meg was seen and examined again at bedside. She feels well, offers no specific complaints. She was started on intravenous unfractionated heparin yesterday and given a dose of Coumadin. Her hemoglobin today is 7.6. Perhaps transfusion of 2 units as she progresses towards discharge is appropriate. My concern with Meg moving forward is appropriate followup. She claims that she really does not have transportation available and maybe case management would be helpful to look into options for appropriate medical followup moving forward. She has not had a mammogram in quite some time and there again with an unprovoked PE, occult neoplasia is always a concern. I would be more than happy to follow her up not only for her iron deficiency, but also perhaps looking into the cause of the unprovoked PE. Agree with medical management otherwise. I will continue to follow her closely during her hospital stay.
[2019-01-07] MEDS: HEPARIN SODIUM/DEXTROSE 25,000 UNITS/500 ML BAG IV SCH (10:26)
--- NOTE | 2019-01-07 11:55 | Medical Student Progress Note ---
Date of Service January 07, 2019 Moriah Weaver is a 58-year-old female with a history of DMII, hypertension, h yperlipidemia and anxiety who presented to the emergency department at [place] on Saturday night with concerns of chest pain, dyspnea on exertion, and headache. A chest CT was performed and she was found to have a pulmonary embolism in her right lower lobe. Blood work was repeated showing a hemoglobin of 7.0 ng/dL and MCV of 66.3 fL, indicative of a microcytic anemia. It was noted that at some time the patients hemoglobin had dropped from 14 to 10 but it is unknown when this happened. Patient has had symptomatic hemorrhoids approximately every month for the last 8-9 years. An EGD and colonoscopy were performed with the only findings being mild hemorrhoids. Patient received IV iron sucrose yesterday (the first of three rounds). After risk of bleeding was ruled out, patient was started on heparin to prevent future clots. She was started on heparin at approximately 6:30PM on 01/06 and agreed to remain in the hospital for monitoring. She has had two bowel movements this morning, one at approximately 5AM that was a bright red stool. It was felt by the patient that this may have been from the watermelon that she ate rather than blood. She passed another stool at 8AM that was formed and brown with no evidence of blood. Patient does not endorse any shortness of breath, palpitations, or chest pain. She states that she was able to sleep well and does not feel any fatigue. She does not endorse any nausea or vomiting and states that she has been able to eat both lunch and dinner without issue. She does not have any pain other than at the site of the iron transfusion. 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 However, she states some resentment at her heparin being started so late in the day such that she will not be able to leave until this evening at the earliest and is upset with her niece for making her come to the hospital to begin with. She is concerned about the possibility of medical bills and her ability to receive follow up in the [facility] where she resides. Review of Systems Constitutional: no sweats, no malaise and no insomnia Respiratory: + cough; no dyspnea Cardiovascular: no chest pain, no dyspnea on exertion and no edema Gastrointestinal: + blood in stools Genitourinary: no problem reported Neurologic: + problem reported Psychiatric: + anxiety Physical Exam Physical Exam: Neck: Swelling in the superficial cervical region. Pulmonary Clear bilaterally. No crackles, rales, or wheezes. Cardiac with pulses Regular rate and rhythm. No rubs murmurs or gallops. No edema in the lower extremities. Pedal pulses appreciated. Abdomen Normoactive bowel sounds. No tenderness to palpation or hepatospelomegaly. Lymph No lymphadenopathy. Neuro Alert and oriented x 3. Thought pattern is clear and organized. Results & Data Vital Signs (Past 12 Hours) Vital Signs Temp Pulse Pulse Resp BP Pulse Ox 01/07/19 07:23 80 01/07/19 07:03 36.7 C 81 16 107/65 94 01/07/19 03:09 36.9 C 85 16 118/67 95 Laboratory Results H-H: 7.6 and 26.4 PTT: 79.4 K: 3.2 Glucose: 167
[2019-01-07 12:09] LABS: Hematocrit (blood only) 28.1 % (37-47); Hemoglobin 8.2 g/dL (12.0-16.0)
[2019-01-07 12:29] LABS: Partial Thromboplastin Ratio 1.9
[2019-01-07 12:55] LABS: Partial Thromboplastin Time 52.5 Seconds (21.0-31.0)
[2019-01-07] MEDS ORDERED: POTASSIUM CHLORIDE 20 MEQ TABCR PO STA (13:32)
[2019-01-07] MEDS: HYDROCORTISONE ACETATE 25 MG SUPP PR SCH ×3 (14:39→19:47)
[2019-01-07] MEDS: WARFARIN SOD 5 MG TAB PO SCH (16:11)
[2019-01-07] MEDS ORDERED: ENOXAPARIN 100 MG/1ML SYR SQ SCH (17:30)
--- NOTE | 2019-01-12 16:05 | Discharge Summary ---
Date of Service date of admission - 01/04/19 date of discharge - 01/07/19 Admission HPI Per Admitting Provider Meg is a 58-year-old female with a history of DMII, hypertension, hyperlipidemia and anxiety who presented to the emergency department at [facility] on Saturday night with concerns of chest pain, dyspnea on exertion, and headache. Her troponin was <0.02 ng/mL; however, she was found to have a hemoglobin of 8 g/dL and a D-dimer of 1.7 mg/L. A chest CT was performed and she was found to have a pulmonary embolism in her right lower lobe. She was at this time transported to [facility] where she underwent venous doppler US to rule out the possibility of a DVT. Bloodwork was repeated upon arrival at [facility] showing a hemoglobin of 8.0 ng/dL. It was noted that at some time in the past the patients hemoglobin had dropped from 14 to 10 but it is unknown when this happened. Patient reported she obtained a colonoscopy about 9-10 years ago that showed no evidence of polyps or malignancy. The rectal bleeding has continued intermittently over the last few months. She states that she only has bleeding with formed stools and the blood is not on the feces itself but rather in the water and on the toilet paper after she relieves herself. She does not endorse any pain or itching with these bloody bowel movements. She will sometimes treat hemorrhoids with preparation H which helps some. She was also prescribed a cream for the hemorrhoids which she only uses when there is a lot of bleeding which stops it. She normally defecates 2-3 times in the morning and once in the evening. She says her stools are usually loose from her metformin. Principal Diagnosis severe iron deficiency anemia - etiology uncertain Discharge Exam Constitutional well developed and well nourished; no acute distress ENMT external ear and nose normal, oropharynx normal Respiratory normal respiratory effort, lungs clear to auscultation Cardiovascular RRR, no murmur, no edema Heart Sounds: normal S1 and normal S2 Vessels: posterior tibial pulses present and dorsalis pedis pulses present; no JVD Extremities: + edema (left arm near the antecubital region; no palpable cord; erythematous, warm) Gastrointestinal (Abdomen) normal bowel sounds, soft, nontender, no hepatosplenomegaly Skin + pallor Psychiatric Orientation: alert and oriented x 3 Affect: + anxious affect Discharge Data Allergies Allergy/AdvReac Type Severity Reaction Status Date / Time shrimp Allergy Rash Verified 01/04/19 05:51 Consultations 1. [facility] - Federico Sharpe MD 2. Hematology/oncology - Mikie Childress DO 3. hospice educator Procedures Performed 1. 01/05/19: Esophagogastroduodenoscopy - Federico Sharpe MD * gastric polyps but otherwise normal Colonoscopy - Federico Sharpe MD * non-bleeding, mild internal hemorrhoids 2. IV Venofer (iron) Ordered Studies b/l lower extremity venous dopplers -- negative for DVT Hospital Course (1) Iron deficiency anemia: Severe, with ferritin of 8. She was seen by [facility] and underwent EGD & colonoscopy by Dr Federico Sharpe without a source of bleeding (mild hemorrhoids found but doubt this was cause). Outpatient capsule endoscopy recommended. B12 level was low-normal -- she will also supplement this after discharge. She was seen in consult by Dr Mikie Childress from hematology/oncology who recommended IV venofer therapy. She received 1 dose of such while hospitalized and will probably need at least 2 more runs of this after discharge. In the meantime she will supplement with oral ferrous sulfate. Her CBC remained stable her entire stay. Admission hemoglobin was 8; discharge hemoglobin was 8.2. She was advised to follow-up with both [facility] for the capsule endoscopy and with the [facility] at [facility] for the IV iron. (2) Symptomatic anemia: 2nd to severe iron deficiency. She did NOT require any transfusion while hospitalized. (3) Pulmonary embolism on right: Review of CT report from outside facility noted a filling defect in the segmental/subsegmental posterior basilar right lower lobe pulmonary artery consistent with pulmonary embolism. Dopplers were negative for DVT at [facility]. This would be an unprovoked event. No recent travel, surgery, etc. Unprovoked nature of the PEs was concerning for occult malignancy. Doubt inherited thrombophilia. After her EGD/colonoscopy were completed, and in light of the concern for occult GI bleeding, she was placed on a heparin drip with coumadin and observed for 24 hours to ensure no GI bleeding. She did not have any GI bleeding on the heparin infusion. She was ultimately transitioned to [place] lovenox. She will bridge with lovenox while waiting for coumadin to reach goal. Her sister is an RN and will give her the lovenox injections at her home. INR on day of discharge was 1.1. She will have daily INR checks in [place] or [facility]. Once INR is 2 or greater the lovenox should be continued for an additional 2 days ("overlap therapy") then it can finally be discontinued. Coumadin should be given for minimum of 6 months. Dose at discharge was 5mg daily. Dr Childress advised mammogram and other cancer screenings according to age- guidelines in light of the unprovoked nature of this VTE event. (4) Hypertension: Continue enalapril. (5) Hyperlipidemia: Fibrate will be held due to the interaction of such with coumadin. (6) Diabetes mellitus: Metformin will be resumed at discharge using the XR version. a1c 8.5%. During her stay she had a questionable allergic reaction to novolog with ?facial rash. (7) Anxiety: Continue lorazepam prn. Consider SSRI initiation as outpatient. Patient reported numerous psychosocial stressors. (8) Hepatic steatosis: LFTs were stable while hospitalized. (9) Hypokalemia: Replaced aggressively while hospitalized. Level was 3.2 on day of discharge. She was given a prescription for potassium supplementation at discharge. (10) Internal hemorrhoids: Anusol suppositories prn for pain/discomfort/bleeding. Total Time Total Time Spent Total Time Spent (In Minutes): 60 Total Time Includes: Examination of the Patient, Discharge Planning, Medication Reconciliation and Communication With Other Providers Discharge Plan Discharge Items Patient Disposition: Home - Self-Care Reason For Visit: SYMPTOMATIC ANEMIA; PE (blood clots in lungs) Discharge Diagnosis: 1. severe iron deficiency anemia 2. pulmonary emboli Discharge Goals: Diagnostic testing and Therapeutic intervention Activity: As commented below Activity Comment: take it easy for the next 4-5 days; no strenuous activities Exercise/Sports: Gradually increase as tolerated Driving/Machine Use: No limitations Non-emergency contact: Primary Care Provider Call non-emergency contact if: you have any medication questions, your symptoms worsen and your temperature is above 100.5 Follow-up/Referrals: Mikie Childress DO [Physician] - (please call Dr Childress's office to schedule appointment for next iron infusion ) Federico Sharpe [Physician] - (please call Dr Sharpe's office to schedule outpatient "capsule endoscopy" ) Ashley Muhammad PA-C [Primary Care Provider] - 01/14/19 8:00 am (Please, follow up with Ashley Muhammad PA-C on SaturdayJanuary 14 at 8:00 am. *If you need to change this appointment, call the office at [phone]. YOU CAN HAVE YOUR LABS DRAWN AT THE [facility] OUT[facility] ANY DAY BETWEEN 7 AM - 5 PM OR YOU CAN HAVE THEM DRAWN AT YOUR PRIMARY CARE PROVIDER'S OFFICE WEEKDAYS (EXCEPT HOLIDAYS) BETWEEN 8 AM - 12 PM. PLEASE, BE SURE TO HAVE THE SCRIPT (PHYSICIAN'S ORDER) FOR THE LABS WITH YOU.) Diet: Carb Consistent or DM2 Other Ambulatory Orders: Complete Blood Count with Diff (Routine) Timeframe: 20190109 Location: Determined by Patient Ordered By: Emanuel Martin Siuta Prothrombin Time INR (DAILY) Timeframe: 20190109 Location: Determined by Patient Ordered By: Emanuel R Siuta Prothrombin Time INR (DAILY) Timeframe: 20190110 Location: Determined by Patient Ordered By: Emanuel R Siuta Prothrombin Time INR (DAILY) Timeframe: 20190111 Location: Determined by Patient Ordered By: Emanuel R Siuta Prothrombin Time INR (DAILY) Timeframe: 20190112 Location: Determined by Patient Ordered By: Emanuel R Siuta Prothrombin Time INR (DAILY) Timeframe: 20190113 Location: Determined by Patient Ordered By: Emanuel R Siuta Prothrombin Time INR (DAILY) Timeframe: 20190114 Location: Determined by Patient Ordered By: Emanuel R Siuta Prothrombin Time INR (DAILY) Timeframe: 20190115 Location: Determined by Patient Ordered By: Emanuel R Siuta Prothrombin Time INR (Timed) Timeframe: 1 Day Location: Determined by Patient Ordered By: Emanuel Martin Siuta Addtl Provider Instructions: You were admitted for severe anemia. We found severe iron deficiency as well as borderline low vitamin B12 levels. You received 1 run of IV iron for the iron deficiency. When iron deficiency is found there is considerable concern of gastrointestinal blood loss over a lengthy period of time. Therefore you underwent an upper endoscopy and colonoscopy. Both were normal except for mild internal hemorrhoids. The hemorrhoids were not bleeding and were small. Recommendations - 1. Please call the [facility] GI office in [place] to schedule the "capsule endoscopy" with Dr Sharpe. 2. Please take bcut-daj-fianaif iron (Ferrous sulfate) 325mg twice daily unless you end up receiving additional IV iron from Dr Childress or another physician. 3. Please take kodj-mqk-aoeqbii vitamin B12 1000mcg daily for 1 year. 4. Take lovenox injections 90mg twice daily until otherwise instructed by Ashley Muhammad. Typically people have to take this about 5-7 days. Take the shots about 12 hours apart. Take your first shot tomorrow MORNING. 5. Take warfarin (coumadin) 5mg once daily about 4pm each afternoon. Take your first dose TOMORROW on 01/08/19. Please note that your dose may change based on your "INR" levels. 6. Use anusol suppositories for 5-7 days for your hemorrhoids. 7. STOP your hydrochlorothiazide. Your blood pressures have been low or low- normal while at [facility]. Again I would hold this for now. 8. Reduce your potassium supplement to 10meq once daily. 9. You requested the extended release metformin which sometimes helps prevent Gi side effects. I sent in a new prescription for the metformin XR to your pharmacy. Stop your old metformin. 10. STOP your fenofibrate for now. Labs - You will need a daily INR which is your "blood thinner number". You will need this daily for the next week or so. You can go to [facility] or your family doctor's office for this. Your family doctor will manage your coumadin. Your INR goal is between 2 and 3. It is currently 1.1. Get your first INR checked TOMORROW on 01/08/19. Follow-up -- see separate section. Return to any hospital if -- * you have dark, tarry stools * you have persistent bright red blood in your stools * you have severe dizziness or lightheadedness * you have severe shortness of breath * you have severe nosebleed, severe bruising, or blood in your urine * any other concerns Additional instructions Regarding Your Warfarin and Blood Clots: * Warfarin is a medicine prescribed to prevent blood clots * Warfarin will thin your blood and help prevent new clots * Take your medications exactly as directed * Never skip a dose. Never take a double dose. If you miss a dose, take it as soon as you remember * It is important for your doctor to monitor your INR. This is a lab test * Keep your appointment for lab tests Risk of Adverse Drug Reactions and Interactions: * Warfarin increases your risk of bleeding * The food you eat and other medications you take can affect how Warfarin works in your body * Ask your doctor about daily aspirin therapy * It is very important to talk with your doctor about all of the other medicines, antibiotics, vitamins or herbal products that you are taking * All of your medication must be approved by your doctor, including new medicines, as well as medicines you have taken before you started taking Warfarin Diet: * In order for Warfarin to work properly, it is important to keep your intake of Vitamin K as consistent as possible * You should avoid any sudden change in Vitamin K intake * Report any significant changes in your diet or weight to your doctor Call your Primary Care doctor if you experience any of the following: * Swelling or Pain in your leg * Sudden, continuous pain deep in a muscle * Pain that worsens when you are active or when you stand still for a long time * Chest Pain * Sudden Shortness of Breath * Rapid or pounding heart beat * Fainting * Dizziness * Cough with blood or bloody sputum * Sweating more than normal * Bruises * Heavy or uncontrolled bleeding * Blood in your urine, stool or vomit * Black or tarry stools Caring for Your Self at Home: * Avoid sitting, standing or lying down for long periods without moving your legs and feet * When traveling by car, stop to get out and move around at least once every 3 hours * On long airplane, train or bus rides, get up and move around when possible * If you can't get up, wiggle your toes and tighten your calves to keep your blood moving * When you shave your legs or under arms please do NOT use a traditional razor; use an electric razor Prescriptions: New enalapril maleate 5 mg Tablet 2.5 mg PO HS Qty: 30 RF: 0 warfarin [Coumadin] 5 mg Tablet 5 mg PO DAILY@1600 Qty: 30 RF: 2 ferrous sulfate 325 mg (65 mg iron) Tablet,Delayed Release (Dr/Ec) 325 mg PO BID Qty: 60 RF: 2 enoxaparin 100 mg/mL Syringe 90 mg subcut Q12H Qty: 14 RF: 0 potassium chloride [Klor-Con M10] 10 mEq Tablet,Er Particles/Crystals 10 meq PO DAILY Qty: 30 RF: 0 hydrocortisone acetate [Anucort-HC] 25 mg Suppository 25 mg WI QID Qty: 30 RF: 0 lorazepam 0.5 mg Tablet 0.5 mg PO DAILY PRN (Reason: anxiety) Qty: 1 RF: 0 cyanocobalamin (vitamin B-12) 1,000 mcg capsule 1,000 mcg PO DAILY Qty: 90 RF: 3 metformin 500 mg tablet extended release 24hr 500 mg PO BID Qty: 60 RF: 5 Stand-Alone Forms: [facility], Work/School Release (Inpt) Discharge Orders: Discharge Order (Routine); Ordered 01/07/19 Ordered By: Emanuel Wilhelm Admission Data Admit Date/Time: 01/04/19 02:15 Attending Provider: Emanuel Wilhelm Admit Provider: Joni Camacho Primary Care Provider: Ashley Muhammad Other Providers: Harsh Dent ; Arvind Miller Service: Telemetry Medical Other Interventions: Discharge Summary Assessment (RN) Last Done: 01/07/19 19:15 Pending Studies at Discharge: No DC Date/Time DO NOT enter until pt leaves facility: 01/07/19 19:55
--- NOTE | 2019-01-14 08:51 | Coding Query ---
CODING QUERY To promote full compliance with coding requirements relating to patient care, provider participation is requested in all cases of construction helper uncertainty. Please assist us with the question(s) below: Coding Question(s): There is documentation in the record of Pulmonary Embolism with early documentation on the 01/04 H&P addendum and on 01/04 Progress Note of maybe chronic pulmonary embolism and unsure if PE is acute and then no further specification. Please clarify below, in your clinical opinion, regarding the Pulmonary Embolism. ( x) Acute Pulmonary Embolism - as confirmed by CTA chest completed at outside hospital. ( ) Chronic Pulmonary Embolism only Physician's Response(s): Thank you Edwige Mcwilliams Principal Diagnosis: "that condition established after study, to be chiefly responsible for occasioning the admission of the patient to the hospital for care." Co-Existing Principal Diagnosis: "when two or more diagnoses equally meet the criteria for principal diagnosis as determined by the circumstances of admission, diagnostic work up, and/or therapy provided, and the Alphabetic Index, Tabular List, or another coding guideline does not provide sequencing direction, any one of the diagnoses may be sequenced first." "When the physician has documented what appears to be a current diagnosis in the body of the record, but has not included the diagnosis in the final diagnostic statement, the physician should be asked whether the diagnosis should be added." (Source Coding [facility] 2 QTR90. p3-4) JAYNE
== END 2019-01-07 19:55 | disposition home or self-care (01) | DRG 811 ==
LOC: SUATTDRO 01-04 02:15 → 2S 01-04 02:15